=== PATIENT | male | born 1995 | race Two or more races ===

== ENCOUNTER 2023-01-03 18:54 | Emergency (ER) | payer SELFPAY ==
[~2023-01-03] VITALS: Ht 152.4 cm; Wt 68.0 kg
--- NOTE | 2023-01-03 19:32 | NUR ---
Patient out of unit for ct scan via [facility].
[2023-01-03 19:59] LABS: HEMATOCRIT 36.9 % (36.7-47.1); MEAN CORPUSCULAR HEMOGLOBIN 29.3 uug (23.8-33.4); MEAN CORPUSCULAR VOLUME 88.9 fL (73.0-96.2); PLATELET COUNT (AUTO) 221 K/uL (152-348)
[2023-01-03 20:14] LABS: CARBON DIOXIDE 25 mmol/L (21-32); CHLORIDE 106 mmol/L (98-107); CREATININE 0.6 mg/dL (0.6-1.3); GLUCOSE 115 mg/dL (74-106); POTASSIUM 3.8 mmol/L (3.5-5.1); UREA NITROGEN, BLOOD 6 mg/dL (7-18)
[2023-01-03 20:24] LABS: ACETAMINOPHEN < 2.0 ug/mL (10-30); ALANINE AMINOTRANSFERASE 59 U/L (16-63); ALKALINE PHOSPHATASE 327 U/L (50-136); ASPARTATE AMINOTRANSFERASE 158 U/L (15-37); BILIRUBIN,DIRECT 0.3 mg/dL (0.0-0.2); BILIRUBIN,TOTAL 0.8 mg/dL (0.2-1.0); TOTAL PROTEIN, SERUM 8.8 g/dL (6.4-8.2)
[2023-01-03 20:26] LABS: THYROID STIMULATING HORMONE 0.764 mIU/mL (0.358-3.740)
[2023-01-04] MEDS ORDERED: LORAZEPAM 0.5 MG TABLET PO ONE (05:15)
[2023-01-04] MEDS ORDERED: LORAZEPAM 1 MG TABLET ONE (05:26)
--- NOTE | 2023-01-04 05:47 | NUR ---
Called [facility] for ride home for patient. 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
--- NOTE | 2023-01-04 05:55 | NUR ---
[employer] picked up patient at lobby pickup.
--- NOTE | 2023-01-04 05:56 | NUR ---
Patient discharged to home in stable condition. Written and verbal after care instructions given. Patient verbalizes understanding of instructions. Stressed follow up or return to ER for worsening s/s. Patient walked out with steady gait.
[2023-01-04 06:06] VITALS: BP 130/70; TEMP 97.2; O2SAT 100
== END 2023-01-04 06:07 | disposition home or self-care (01) ==
LOC: ER 18:54
DX: F10.129 Alcohol abuse with intoxication, unspecified (principal); R51.9 Headache, unspecified; R07.89 Other chest pain; Y90.8 Blood alcohol level of 240 mg/100 ml or more
CPT/HCPCS: 36415; 70450; 71045; 72125; 84443; 84484; 85025; 93005; A4663; G0480